=== PATIENT | female | born 1975 | race Hispanic/Latino ===

== ENCOUNTER 2022-10-26 05:54 | Day surgery (SDC) | payer OTHER ==
[2022-10-21 12:21] VITALS: BP 139/73; PULSE 65; RESP 18
[2022-10-26] VITALS (8 sets, daily range): BP systolic 101–122; BP diastolic 55–73; PULSE 56–64; RESP 14–16
[~2022-10-26] VITALS: Ht 157.5 cm; Wt 85.5 kg
[~2022-10-26 05:54] MED LIST: BOTULINUM TOXIN TYPE A 100 UNITS/VIAL INJ ONE; DICL35CA3 PO; FAMO40TA7 PO; HYDR200T82 PO; LEVO75CA5 PO; MOM30 PO; MULT-1283 PO; MVI PO; OMEP40CA21 PO; VITAMIN D3 PO
[2022-10-26] MEDS ORDERED: 0.9%NACL 1000ML 1,000 ML IV ONE (06:32)
[2022-10-26] MEDS ORDERED: LIDOCAINE PF 100MG/5ML (2%) SYRINGE 5ML ONE (07:37)
[2022-10-26] MEDS ORDERED: PROPOFOL 10 MG/ML 20ML VIAL IV ONE (07:37)
== END 2022-10-26 08:25 | disposition home or self-care (01) ==
LOC: ENDO 05:54 → DAH 05:54 → ENDO 08:25
PROVIDERS: ATTEND Internal Medicine Gastroenterology
DX: K22.0 Achalasia of cardia (principal); K22.2 Esophageal obstruction; K22.89 Other specified disease of esophagus; K21.9 Gastro-esophageal reflux disease without esophagitis; E03.9 Hypothyroidism, unspecified; Z90.49 Acquired absence of other specified parts of digestive tract; Z90.710 Acquired absence of both cervix and uterus; Z98.890 Other specified postprocedural states; Z98.84 Bariatric surgery status; Z98.51 Tubal ligation status; Z79.1 Long term (current) use of non-steroidal anti-inflammatories (NSAID); Z87.891 Personal history of nicotine dependence
CPT/HCPCS: 82948; 43236; J0585; J7030 ×2; J2001; J2704; A4620; A4215 ×2; A4223; A7002; A4222; A4221; A4663; A4216; A4606; J3490

== ENCOUNTER → 2023-02-01 | Outpatient (CLI) | payer OTHER ==
[~2023-02-01] MED LIST changes: +0.9%NACL 1000ML 1,000 ML IV ONE; -DICL35CA3 PO; +FOLIC ACID PO; -HYDR200T82 PO; -MULT-1283 PO; +VITAMIN C PO
== END | disposition home or self-care (01) ==
LOC: DAH 10:00 → EDSTATUS 11:35
PROVIDERS: ATTEND Internal Medicine Gastroenterology
DX: K22.0 Achalasia of cardia (principal); Z53.8 Procedure and treatment not carried out for other reasons
CPT/HCPCS: J0585; J7030